=== PATIENT | male | born 1940 | race Caucasian/White ===

== ENCOUNTER 2016-09-24 07:26 | Day surgery (SDC) | payer MEDICARE ==
[2016-09-24] MEDS ORDERED: Lactated Ringers 1,000 ML IV SCH (07:30)
[2016-09-24] MEDS ORDERED: Midazolam 1 MG/ML 2 ML SDV IV ONE (09:00)
[2016-09-24] MEDS ORDERED: Propofol 200 MG/20 ML SDV IV ONE (09:00)
--- NOTE | 2016-09-24 10:02 | PCM.OPNOTE ---
- General Post-Op/Procedure Note Date of Surgery/Procedure: 09/24/16 Operative Procedure(s): c scope with biopsy. hot loop and cold snare Findings: ascending colon polyp sigmoid colon polyps x2 diffuse diverticulosis Pre Op Diagnosis: screening Post-Op Diagnosis: ascending colon polyp. sigmoid colon polyps x2. diffuse diverticulosis Anesthesia Technique: [facility] [place] Primary Surgeon: Rj Coronel Anesthesia Provider: Melinda Chavis Pathology: ascending colon polyp sigmoid colon polyps x2 Complications: None Condition: Good Free Text/Narrative:: see dictation
[2016-09-24 12:53] VITALS: BP 147/94
--- NOTE | 2016-09-24 13:31 | OR ---
DATE OF OPERATION: 09/24/2016 SURGEON: jR Coronel MD PROCEDURE PERFORMED: Colonoscopy with hot loop and cold forceps biopsy. PREOPERATIVE DIAGNOSIS: Screening colonoscopy. POSTOPERATIVE DIAGNOSIS: Polyp in ascending colon, polyp of the proximal sigmoid colon, polyp of the distal sigmoid colon, and diffuse diverticulosis. INDICATIONS FOR PROCEDURE: This is a 75-year-old white male, who presents for followup colonoscopy. He was offered and accepted the same. DESCRIPTION OF OPERATION: After an excellent IV sedation was administered, digital rectal exam was performed. Colonoscope was inserted and advanced without difficulty to the cecum. The prep was excellent. The following findings were noted. Ascending colon, occasional diverticula. A small pedunculated polyp biopsied with cold biopsy forceps and sent for permanent. Transverse colon, diffuse diverticulosis. Descending colon, diffuse diverticulosis. Sigmoid, moderate diverticulosis. In the proximal sigmoid colon, a small pedunculated polyp biopsied with combination of hot loop and cold forceps. Distal sigmoid, there was a large pedunculated polyp, which was removed piecemeal via a hot loop snare. We also tattooed the base to aid in further followup after this procedure. The rectum was unremarkable. The stomach was deflated. The scope was removed. The patient tolerated the procedure, taken to recovery in good condition. /[id number] /MODL
== END 2016-09-24 10:53 | disposition home or self-care (01) ==
LOC: FB.SDS 07:26
PROVIDERS: ATTEND Surgery
DX: Z12.11 Encounter for screening for malignant neoplasm of colon (principal); D12.5 Benign neoplasm of sigmoid colon; K63.5 Polyp of colon; K57.30 Diverticulosis of large intestine without perforation or abscess without bleeding; Z86.010 Personal history of colon polyps; E78.2 Mixed hyperlipidemia; I10 Essential (primary) hypertension; J45.909 Unspecified asthma, uncomplicated; M19.90 Unspecified osteoarthritis, unspecified site; N40.1 Benign prostatic hyperplasia with lower urinary tract symptoms; R31.29 Other microscopic hematuria; Z79.899 Other long term (current) drug therapy; Z79.82 Long term (current) use of aspirin; Z13.1 Encounter for screening for diabetes mellitus; Z12.5 Encounter for screening for malignant neoplasm of prostate; Z87.442 Personal history of urinary calculi; Z98.890 Other specified postprocedural states; Z82.49 Family history of ischemic heart disease and other diseases of the circulatory system
CPT/HCPCS: 00902; 45380; 45385; 88305; J2250; J2704; J7120

== ENCOUNTER 2018-01-13 06:39 | Day surgery (SDC) | payer MEDICARE ==
[2018-01-13] MEDS ORDERED: Lactated Ringers 1,000 ML IV SCH (06:45)
[2018-01-13] MEDS ORDERED: Sodium Chloride 0.9% 10 ML Syringe FLUSH PRN (06:45)
[2018-01-13] MEDS ORDERED: Propofol 200 MG/20 ML SDV IV ONE (08:00)
--- NOTE | 2018-01-13 08:34 | PCM.OPNOTE ---
- General Post-Op/Procedure Note Date of Surgery/Procedure: 01/13/18 Operative Procedure(s): c scope with bx Findings: tranverse colon polyp sigmoid diverticulosis Pre Op Diagnosis: hx of colon polyp Post-Op Diagnosis: tranverse colon polyp. sigmoid diverticulosis Anesthesia Technique: MAC Primary Surgeon: Rj Coronel Anesthesia Provider: Genaro Guzman Pathology: tranverse colon polyp Complications: None Condition: Good Free Text/Narrative:: see dictation
[2018-01-13 09:56] VITALS: BP 142/84
--- NOTE | 2018-01-14 08:56 | OR ---
DATE OF OPERATION: 01/13/2018 SURGEON: Rj Coronel MD PROCEDURE PERFORMED: Colonoscopy with cold forceps biopsy. PREOPERATIVE DIAGNOSES: History of ascending colon polyp and sigmoid diverticulosis. POSTOPERATIVE DIAGNOSES: Transverse colon polyp and sigmoid diverticulosis. INDICATIONS FOR PROCEDURE: This is a 77-year-old white male, who last year underwent a colonoscopy and had a rather large pedunculated polyp removed from his sigmoid colon. The area had been tattooed, but due to the size, I recommended to follow up in 1 year. He presents now for same. DESCRIPTION OF OPERATION: After an excellent IV sedation was administered, digital rectal exam was performed. No marked abnormality was noted. A flexible colonoscope was inserted and advanced without difficulty to the patient's cecum. The prep was excellent. The following findings were noted: Ascending colon, unremarkable. Transverse colon; a small hyperplastic-appearing polyp, biopsied with cold biopsy forceps and sent for permanent. Descending colon was unremarkable. Sigmoid demonstrated some moderate sigmoid diverticulosis. The area of the previous biopsy, which had been tattooed, was unremarkable. Rectum and anus were unremarkable. Followup will be determined by biopsy. /[id number] /MODL
== END 2018-01-13 09:20 | disposition home or self-care (01) ==
LOC: FB.SDS 06:39
PROVIDERS: ATTEND Surgery
DX: K63.5 Polyp of colon (principal); K57.30 Diverticulosis of large intestine without perforation or abscess without bleeding; I10 Essential (primary) hypertension; J45.909 Unspecified asthma, uncomplicated; E78.5 Hyperlipidemia, unspecified; Z86.010 Personal history of colon polyps; Z79.82 Long term (current) use of aspirin; Z79.899 Other long term (current) drug therapy
CPT/HCPCS: 00812-QZ; 88305; J2704; J7120

== ENCOUNTER 2024-09-13 06:44 | Day surgery (SDC) | payer MEDICARE ==
[2024-09-13] MEDS ORDERED: fentaNYL 100 MCG/2 ML SDV IV ONE (06:45)
[2024-09-13] MEDS ORDERED: Lactated Ringers 1,000 ML IV PRN (06:45)
[2024-09-13] MEDS ORDERED: Sodium Chloride 0.9% 10 ML Syringe FLUSH PRN (06:45)
[2024-09-13] MEDS ORDERED: Midazolam 1 MG/ML 2 ML SDV IV ONE (06:45)
[2024-09-13] MEDS: acetaZOLAMIDE 500 MG Cap.ER PO ONE (09:12)
[2024-09-13 10:41] VITALS: BP 165/85; PULSE 67
== END 2024-09-13 09:24 | disposition home or self-care (01) ==
LOC: FB.SDS 06:44
PROVIDERS: ATTEND Ophthalmology
DX: H26.9 Unspecified cataract (principal); H25.813 Combined forms of age-related cataract, bilateral; H01.001 Unspecified blepharitis right upper eyelid; H01.004 Unspecified blepharitis left upper eyelid; H52.03 Hypermetropia, bilateral; H52.223 Regular astigmatism, bilateral; I10 Essential (primary) hypertension; E78.2 Mixed hyperlipidemia; Z79.899 Other long term (current) drug therapy
CPT/HCPCS: A9270-GY; J2250; J3010; V2632

== ENCOUNTER 2024-10-04 07:27 | Day surgery (SDC) | payer MEDICARE ==
[2024-10-04] MEDS ORDERED: fentaNYL 100 MCG/2 ML SDV IV ONE (07:28)
[2024-10-04] MEDS ORDERED: Midazolam 1 MG/ML 2 ML SDV IV ONE (07:28)
[2024-10-04] MEDS ORDERED: Lactated Ringers 1,000 ML IV PRN (07:30)
[2024-10-04] MEDS ORDERED: Sodium Chloride 0.9% 10 ML Syringe FLUSH PRN (07:30)
[2024-10-04] MEDS: acetaZOLAMIDE 500 MG Cap.ER PO ONE (09:26)
[2024-10-04 13:07] VITALS: BP 148/94; PULSE 68
== END 2024-10-04 09:47 | disposition home or self-care (01) ==
LOC: FB.SDS 07:27
PROVIDERS: ATTEND Ophthalmology
DX: H26.9 Unspecified cataract (principal); I10 Essential (primary) hypertension; E78.2 Mixed hyperlipidemia; Z79.899 Other long term (current) drug therapy
CPT/HCPCS: 66984; A9270; J2250; J3010; V2632; 00142; 99100